=== PATIENT | male | born 1940 | race Caucasian/White ===

== ENCOUNTER → 2017-02-04 | Outpatient (CLI) | payer OTHER ==
[~2017-02-04] MED LIST: AMIO400T4 PO; ASPI-621 PO; ATEN25TA PO; DIAZ5TAB4 PO; DOCU-30 PO; FLUR15CA3 PO; FURO-93 PO; HYDR-3144 PO; METO25TA35 PO/NG; MULT1TAB60 PO; NAPR220T29 PO; POTA10TA5 PO; POTASSIUM PO; SIMV40TA3 PO; WARF5TAB7 PO
== END | disposition home or self-care (01) ==
LOC: CFH 09:27
PROVIDERS: ATTEND Internal Medicine Cardiovascular Disease
DX: I34.0 Nonrheumatic mitral (valve) insufficiency (principal)
CPT/HCPCS: 93306